=== PATIENT | female | born 1985 | race Two or more races ===

== ENCOUNTER 2018-05-06 11:16 | Outpatient (CLI) | payer OTHER | END 2018-05-06 12:04 | disposition home or self-care (01) | LOC: NST 11:16 | DX: Z34.83 Encounter for supervision of other normal pregnancy, third trimester (principal) ==

== ENCOUNTER 2018-05-15 09:24 | Inpatient (IN) | payer OTHER ==
[~2018-05-15] VITALS: Ht 154.9 cm; Wt 63.5 kg
[2018-05-15] MEDS ORDERED: PRENATE ELITE1 EAC2 PO (10:03)
== END 2018-05-18 12:37 | DRG 766 ==
LOC: O/R 09:24 → OB/GYN 10:42
PROVIDERS: Obstetrics & Gynecology Maternal & Fetal Medicine
PROC: 4A1HXCZ Monitoring of Products of Conception, Cardiac Rate, External Approach (ICD-10-PCS; 2018-05-15)
PROC: 0UB70ZZ Excision of Bilateral Fallopian Tubes, Open Approach (ICD-10-PCS; 2018-05-15)
PROC: 10D00Z0 Extraction of Products of Conception, High, Open Approach (ICD-10-PCS; principal; 2018-05-15 12:45)
DX: O34.211 Maternal care for low transverse scar from previous cesarean delivery (principal); O75.82 Onset (spontaneous) of labor after 37 completed weeks of gestation but before 39 completed weeks gestation, with delivery by (planned) cesarean section; Z3A.39 39 weeks gestation of pregnancy; Z37.0 Single live birth; Z30.2 Encounter for sterilization